=== PATIENT | male | born 2000 | race Caucasian/White ===

== ENCOUNTER 2020-06-14 12:29 | Outpatient (CLI) | payer OTHER | END 2020-06-14 12:30 | disposition home or self-care (01) | LOC: COV 12:29 | PROVIDERS: ATTEND Family Medicine | DX: R50.9 Fever, unspecified (principal); R05 Cough; R06.02 Shortness of breath; M79.10 Myalgia, unspecified site; R53.83 Other fatigue; J02.9 Acute pharyngitis, unspecified; Z20.828 Contact with and (suspected) exposure to other viral communicable diseases ==

== ENCOUNTER 2020-07-02 15:43 | Outpatient (CLI) | payer OTHER | END 2020-07-02 15:44 | disposition critical access hospital (66) | LOC: EMS 15:43 | PROVIDERS: ATTEND Surgery | DX: R46.89 Other symptoms and signs involving appearance and behavior (principal); R45.1 Restlessness and agitation | CPT/HCPCS: A0425; A0429 ==

== ENCOUNTER 2020-07-02 16:08 | Emergency (ER) | payer OTHER ==
[2020-07-02 16:19] VITALS: BP 158/102
--- NOTE | 2020-07-02 16:21 | ED Physician Documentation ---
PD HPI MHE - Stated complaint Stated Complaint: MHE - History obtained from History obtained from: Patient, EMS - History of Present Illness Pain level max: 0 Pain level now: 0 Recently seen: Not recently seen - Additional information Additional information: 20-year-old male presents to the emergency department stating that he "wants to talk to someone". He states that he feels ready to stand up for himself to his parents. He is not homicidal or suicidal. Nothing makes it better or worse. He has a counseling appointment on Saturday. No hallucinations. No psychosis. Review of Systems Constitutional: denies: Fever, Chills Respiratory: denies: Cough GI: denies: Vomiting, Diarrhea : denies: Dysuria Skin: denies: Rash Musculoskeletal: denies: Neck pain, Back pain Neurologic: denies: Headache Psychiatric: denies: Suicidal, Homicidal, Hallucinations, Insomnia PD PAST MEDICAL HISTORY - Past Medical History Past Medical History: Yes Psych: ADD/ADHD - Past Surgical History Past Surgical History: No - Living Situation Living Situation: reports: With family Living Arrangement: reports: At home - Social History Does the pt smoke?: Yes Does the pt drink ETOH?: Yes Does the pt have substance abuse?: Yes - Family History Family history: reports: Non contributory PD ED PE NORMAL - Vitals Vital signs reviewed: Yes - General General: Alert and oriented X 3, No acute distress, Well developed/nourished - HEENT HEENT: Moist mucous membranes - Neck Neck: Supple, no meningeal sign - Cardiac Cardiac: RRR - Respiratory Respiratory: No respiratory distress, Clear bilaterally - Abdomen Abdomen: Soft, Non tender, Non distended - Derm Derm: Warm and dry - Neuro Neuro: Alert and oriented X 3 - Psych Psych: Normal mood, Normal affect Results - Vitals Vitals: Vital Signs - 24 hr 07/02/20 16:13 Temperature 37.2 C Heart Rate 84 Respiratory 18 Rate Blood Pressure 158/102 H O2 Saturation 100 Oxygen O2 Source Room air PD MEDICAL DECISION MAKING - ED course Complexity details: considered differential, d/w patient ED course: Social work was consulted. Patient has an appointment on Saturday with his counselor. No emergency medical condition at this time. Resources given. This document was made in part using voice recognition software. While efforts are made to proofread this document, sound alike and grammatical errors may occur. Departure - Departure Disposition: Home, Self Care Clinical Impression: Anxiety Condition: Good Instructions: ED Stress React Follow-Up: your,counselor on Saturday as scheduled [Other] Comments: Follow up with your doctor on Saturday. Return if you worsen. Crisis Line and is available to talk to someone [email or web address] is also available to chat with someone online if you prefer. There are also many resources on this website and apps for your phone to help with your mental health You can also text the word START to [phone] to chat with someome via text. Discharge Date/Time: 07/02/20 16:55
== END 2020-07-02 16:55 | disposition home or self-care (01) ==
LOC: EDUNIT# → ED 16:08
DX: F41.9 Anxiety disorder, unspecified (principal); F17.200 Nicotine dependence, unspecified, uncomplicated
CPT/HCPCS: 99283; 99284

== ENCOUNTER 2020-07-06 06:47 | Emergency (ER) | payer OTHER ==
[2020-07-06] MEDS ORDERED: OLANZapine ODT 5 MG TABLET TL ONE (06:50)
--- NOTE | 2020-07-06 07:13 | ED Physician Documentation ---
PD HPI MHE - Stated complaint Stated Complaint: MHE - Chief complaint Chief Complaint: MHE - History obtained from History obtained from: Patient, Other (dcr) - Additional information Additional information: 20-year-old gentleman with history of bipolar disorder presents accompanied by the DCR for mental health evaluation. Reportedly has been off his meds and was jailed a few days ago for threatening his grandmother. He is a poor historian, quite tangential, reportedly in alf was "finger painting" with feces. Review of Systems Unable to obtain: Uncooperative PD PAST MEDICAL HISTORY - Past Medical History Psych: ADD/ADHD - Past Surgical History Past Surgical History: No - Allergies Allergies/Adverse Reactions: Allergies Allergy/AdvReac Type Severity Reaction Status Date / Time No Known Drug Allergies Allergy Verified 07/06/20 16:07 - Social History Does the pt smoke?: Yes Smoking Status: Current every day smoker Does the pt drink ETOH?: Yes Does the pt have substance abuse?: Yes PD ED PE NORMAL - Vitals Vital signs reviewed: Yes - General General: Other (He seems alert and oriented to person, he is tangential when asked questions.) - HEENT HEENT: PERRL, EOMI - Neck Neck: Supple, no meningeal sign, No bony TTP - Cardiac Cardiac: RRR, No murmur - Respiratory Respiratory: No respiratory distress, Clear bilaterally - Abdomen Abdomen: Non tender, Non distended - Back Back: No CVA TTP, No spinal TTP - Derm Derm: Normal color, Warm and dry - Neuro Neuro: No motor deficit, No sensory deficit Eye Opening: Spontaneous Motor: Obeys Commands Verbal: Inappropriate GCS Score: 13 Results - Vitals Vitals: Vital Signs - 24 hr 07/06/20 07/06/20 07/06/20 06:49 09:48 10:30 Temperature 37.6 C H 36.6 C Heart Rate 84 69 70 Respiratory 16 22 17 Rate Blood Pressure 155/81 H 157/108 H 149/85 H O2 Saturation 100 99 95 07/06/20 07/06/20 07/06/20 11:00 11:30 12:00 Temperature Heart Rate 68 59 L 58 L Respiratory 17 16 18 Rate Blood Pressure 138/87 H 139/85 H 140/91 H O2 Saturation 99 96 99 07/06/20 07/06/20 07/06/20 12:30 13:00 14:00 Temperature Heart Rate 56 L 78 82 Respiratory 16 16 18 Rate Blood Pressure 133/79 H 138/84 H 148/86 H O2 Saturation 98 99 07/06/20 07/06/20 07/06/20 15:45 16:00 16:45 Temperature Heart Rate 73 90 90 Respiratory 16 16 16 Rate Blood Pressure 142/73 H 142/70 H 164/83 H O2 Saturation 99 96 98 07/06/20 07/06/20 07/06/20 17:50 18:10 18:42 Temperature Heart Rate 74 73 94 Respiratory 16 16 20 Rate Blood Pressure 128/62 117/58 L O2 Saturation 98 98 98 Oxygen O2 Source Room air - EKG (time done) 1102 Rate: Rate (enter#) (72) Rhythm: NSR [place]: Normal Intervals: Normal [place]. No: Prolonged QT Ischemia: ST elevation c/w repol - Labs Labs: Laboratory Tests 07/06/20 07/06/20 07/06/20 07:04 07:04 07:04 WBC 6.2 RBC 4.28 L Hgb 13.3 L Hct 38.9 L MCV 90.9 MCH 31.1 H MCHC 34.2 RDW 12.5 Plt Count 216 MPV 9.9 Neut # (Auto) 4.0 Lymph # (Auto) 1.2 L Andrews # (Auto) 0.7 Eos # (Auto) 0.3 Baso # (Auto) 0.0 Absolute Nucleated RBC 0.00 Nucleated RBC % 0.0 Sodium 137 Potassium 3.3 L Chloride 104 Carbon Dioxide 23 Anion Gap 10.0 BUN 10 Creatinine 0.8 Estimated GFR (MDRD) 122 Glucose 103 H Calcium 8.8 Total Bilirubin 0.9 AST 41 ALT 27 Alkaline Phosphatase 38 L Total Creatine Kinase 571 H Total Protein 6.8 Albumin 4.3 Globulin 2.5 Albumin/Globulin Ratio 1.7 Lipase 31 TSH 1.08 Urine Color Urine Clarity Urine pH Ur Specific [place] Urine Protein Urine Glucose (UA) Urine Ketones Urine Occult Blood Urine Nitrite Urine Bilirubin Urine Urobilinogen Ur Leukocyte Esterase Ur Microscopic Review Urine Culture Comments Salicylates < 6.0 Urine Opiates Screen Ur Oxycodone Screen Urine Methadone Screen Ur Propoxyphene Screen Acetaminophen < 10 L Ur Barbiturates Screen Ur Tricyclics Screen Ur Phencyclidine Scrn Ur Amphetamine Screen U Methamphetamines Scrn U Benzodiazepines Scrn Urine Cocaine Screen U Cannabinoids Screen Ethyl Alcohol < 5.0 07/06/20 09:12 WBC RBC Hgb Hct MCV MCH MCHC RDW Plt Count MPV Neut # (Auto) Lymph # (Auto) Andrews # (Auto) Eos # (Auto) Baso # (Auto) Absolute Nucleated RBC Nucleated RBC % Sodium Potassium Chloride Carbon Dioxide Anion Gap BUN Creatinine Estimated GFR (MDRD) Glucose Calcium Total Bilirubin AST ALT Alkaline Phosphatase Total Creatine Kinase Total Protein Albumin Globulin Albumin/Globulin Ratio Lipase TSH Urine Color YELLOW Urine Clarity CLEAR Urine pH 6.5 Ur Specific [place] <=1.005 Urine Protein NEGATIVE Urine Glucose (UA) NEGATIVE Urine Ketones 15 H Urine Occult Blood NEGATIVE Urine Nitrite NEGATIVE Urine Bilirubin NEGATIVE Urine Urobilinogen 0.2 (NORMAL) Ur Leukocyte Esterase NEGATIVE Ur Microscopic Review NOT INDICATED Urine Culture Comments NOT INDICATED Salicylates Urine Opiates Screen NEGATIVE Ur Oxycodone Screen NEGATIVE Urine Methadone Screen NEGATIVE Ur Propoxyphene Screen NEGATIVE Acetaminophen Ur Barbiturates Screen NEGATIVE Ur Tricyclics Screen NEGATIVE Ur Phencyclidine Scrn NEGATIVE Ur Amphetamine Screen NEGATIVE U Methamphetamines Scrn NEGATIVE U Benzodiazepines Scrn NEGATIVE Urine Cocaine Screen NEGATIVE U Cannabinoids Screen POSITIVE H Ethyl Alcohol PD MEDICAL DECISION MAKING - ED course ED course: Called into the room approximately 7:35 AM by the nurse who had noted that he has a priapism for about an hour. He says this is a recurrent issue. Asked him how he would take care of it at home, he said "all I need is a girl." Recommended an intracavernosal phenylephrine injection which he refused. Since is only been an hour we will trial some IM Ativan and time. On recheck at 8 AM he is screaming shouting, flailing in the restraints. He is unsafe. I had ordered some IM Dilaudid as well but he refused this. In the interim now the priapism seems to have at least visually resolved. Recheck 8:42 AM, he is much more calm. In the interim I had ordered some ketamine and Versed IM, but with the resolution of his priapism, I think, his agitation has improved significantly. As such the ketamine and Versed were held. Case discussed by phone with the GARCIA Pimentel at approximately 10 AM. He has been much calmer since last rounds of meds. He will need to be out of restraints for 4 hours prior to placement and discussed with the nurse that at this point we can probably start gingerly removing his restraints. He did require some sedation later in the day, but remained calm after that. Care to overnight ED provider pending dispo. Departure - Departure Clinical Impression: Manic behavior Condition: Stable
[2020-07-06 07:20] LABS: BASOPHILS % (AUTO) 0.5 %; EOSINOPHILS # (AUTO) 0.3 10^3/uL (0.0-0.7); HGB - HEMOGLOBIN 13.3 g/dL (14.0-18.0); LYMPHOCYTES # (AUTO) 1.2 10^3/uL (1.5-3.5); LYMPHOCYTES % (AUTO) 19.6 %; MEAN CORPUSCULAR HEMOGLOBIN 31.1 pg (27.0-31.0); MEAN CORPUSCULAR HGB CONC 34.2 g/dL (32.0-36.0); MEAN CORPUSCULAR VOLUME 90.9 fL (80.0-94.0); MEAN PLATELET VOLUME 9.9 fL (7.4-11.4); MONOCYTES # (AUTO) 0.7 10^3/uL (0.0-1.0); MONOCYTES % (AUTO) 11.1 %; NEUTROPHILS % (AUTO) 64.5 %; PLT - PLATELET COUNT 216 10^3/uL (130-450); RED BLOOD COUNT 4.28 10^6/uL (4.70-6.10); RED CELL DISTRIBUTION WIDTH 12.5 % (12.0-15.0); WHITE BLOOD COUNT 6.2 x10^3/uL (4.8-10.8)
[2020-07-06 07:36] LABS: ACETAMINOPHEN < 10 ug/mL (10-30); ALBUMIN 4.3 g/dL (3.2-5.5); ALBUMIN/GLOBULIN RATIO 1.7 (1.0-2.2); ALKALINE PHOSPHATASE 38 IU/L (42-121); ALT ALANINE AMINOTRANSFERASE 27 IU/L (10-60); AST ASPARTATE AMINOTRANSFERASE 41 IU/L (10-42); BILIRUBIN,TOTAL 0.9 mg/dL (0.2-1.0); BUN - BLOOD UREA NITROGEN 10 mg/dL (6-20); CALCIUM 8.8 mg/dL (8.5-10.3); CARBON DIOXIDE - CO2 23 mmol/L (21-32); CHLORIDE 104 mmol/L (101-111); CK- CREATINE KINASE 571 IU/L (22-269); CREATININE 0.8 mg/dL (0.6-1.2); GLUCOSE 103 mg/dL (70-100); LIPASE 31 U/L (22-51); SALICYLATE < 6.0 mg/dL; SODIUM 137 mmol/L (135-145); TOTAL PROTEIN 6.8 g/dL (6.7-8.2)
[2020-07-06] MEDS ORDERED: LORazepam 2 MG/ML VIAL IM STA (07:40)
[2020-07-06] MEDS ORDERED: HYDROmorphone 1 MG/ML CARPUJECT IM STA (07:55)
[2020-07-06] MEDS ORDERED: KETAMINE 500 MG/10 ML VIAL IM STA ×2 (08:07→15:14)
[2020-07-06] MEDS ORDERED: MIDAZOLAM 2 MG/2 ML VIAL IM STA (08:07)
[2020-07-06 09:26] LABS: MUDS CUTOFF CONCENTRATIONS CUTOFF CONC BELOW:
[2020-07-06 09:30] LABS: BILIRUBIN,URINE NEGATIVE (NEGATIVE); GLUCOSE, URINE (UA) NEGATIVE (NEGATIVE); KETONES,URINE (UA) 15 mg/dL (NEGATIVE); LEUKOCYTE ESTERASE, URINE NEGATIVE (NEGATIVE); NITRITE,URINE NEGATIVE (NEGATIVE); OCCULT BLOOD,URINE NEGATIVE (NEGATIVE); PH,URINE 6.5 PH (5.0-7.5); PROTEIN,URINE NEGATIVE (NEGATIVE); UROBILINOGEN,URINE 0.2 (NORMAL) E.U./dL (NORMAL)
[2020-07-06 09:35] LABS: CLARITY,URINE CLEAR (CLEAR)
[2020-07-06 09:41] LABS: AMPHETAMINE SCREEN,URINE NEGATIVE (NEGATIVE); BENZODIAZEPINES SCREEN, URINE NEGATIVE (NEGATIVE); COCAINE SCREEN URINE NEGATIVE (NEGATIVE); METHADONE SCREEN, URINE NEGATIVE (NEGATIVE); METHAMPHETAMINES SCREEN, URINE NEGATIVE (NEGATIVE); OPIATE SCREEN, URINE NEGATIVE (NEGATIVE); OXYCODONE SCREEN, URINE NEGATIVE (NEGATIVE); PROPOXYPHENE SCREEN, URINE NEGATIVE (NEGATIVE); TRICYCLIC ANTIDEPRESSANT,URINE NEGATIVE (NEGATIVE)
[2020-07-06] MEDS ORDERED: risperiDONE 1 MG TABLET PO STA (15:00)
[2020-07-06] MEDS ORDERED: OLANZapine 10 MG VIAL IM STA (15:14)
[2020-07-07] MEDS ORDERED: NICOTINE 21 MG PATCH TOP STA ×2 (02:25→20:31)
[2020-07-07] MEDS ORDERED: LORazepam 1 MG TABLET PO STA ×2 (07:09→19:32)
--- NOTE | 2020-07-07 07:28 | ED Physician Documentation ---
ED Addendum - Addendum Addendum: 07/07/20 07:26 The patient reportedly was calm through the night. This morning however is fairly agitated and redirectable but wanting to wander from his room and not follow direction easily. He is having some rambling of speech and random sexual insults towards nursing staff ("your father had a very small penis") and also having squealing type sounds when he was upset about something with his phone and these persisted for a while. I feel he is still reasonably psychotic and not seeming well safe. We will have the DCR re-dispatched.
[2020-07-07] MEDS ORDERED: OLANZapine ODT 5 MG TABLET TL ONE ×2 (07:42→11:45)
[2020-07-07] MEDS ORDERED: OLANZapine 10 MG VIAL IM STA (13:00)
[2020-07-07] MEDS ORDERED: diphenhydrAMINE INJ 50 MG/ML VIAL IM STA (14:01)
[2020-07-07] MEDS ORDERED: diazePAM 5 MG TABLET PO STA (17:42)
[2020-07-07 19:17] VITALS: BP 144/82
[2020-07-07] MEDS ORDERED: QUEtiapine 100 MG TABLET PO ONE (20:00)
== END 2020-07-07 22:28 ==
LOC: ED 06:47
DX: F31.9 Bipolar disorder, unspecified (principal); Z11.59 Encounter for screening for other viral diseases
CPT/HCPCS: 36415; 80320; 80329; 81003; 82550; 83690; 87635; 93005; 96372; 99285; A9270; J1170; J1200; J2060; J8499; 80053; 80306; 80307; 81001; 84443; 85025; 87086